=== PATIENT | male | born 2000 | race Caucasian/White ===

== ENCOUNTER 2023-03-12 09:04 | Outpatient (CLI) | payer BC, MEDICAID, SELFPAY ==
--- NOTE | 2023-03-12 09:00 | US_ITS ---
WS: [id number] ULTRASOUND LEFT BREAST HISTORY: N63.20 - Unspecified lump in the left breast, unspecified... COMPARISON: None available. TECHNIQUE: 2-D and Doppler. Hypoechoic ill-defined mass posterior to the LEFT nipple without increased vascularity. Mass measures 2.6 x 1.0 cm. Most consistent with gynecomastia. No abnormality noted at the RIGHT nipple. US/US breast LT limited* [id number] IMPRESSION: BI-RADS: 1-Negative FOLLOW-UP: See Report Palpable mass in the LEFT subareolar region is most consistent with a mild gyne comastia.
== END 2023-03-12 09:05 | disposition home or self-care (01) ==
PROVIDERS: PCP Nurse Practitioner Family; Visit Provider Nurse Practitioner Family
DX: N63.20 Unspecified lump in the left breast, unspecified quadrant (principal)
CPT/HCPCS: 76642